=== PATIENT | female | born 1990 | race Caucasian/White ===

== ENCOUNTER 2016-12-23 17:17 | Emergency (ER) | payer OTHER ==
--- NOTE | 2016-12-23 17:51 | DIAGNOSTIC IMAGING REPORT ---
PROCEDURE: XR ANKLE 3 OR 4 VIEWS - RIGHT INDICATION: TRAUMA/INJURY TECHNIQUE: Four views. COMPARISON: None. FINDINGS: Osseous structures and joint spaces are normal. IMPRESSION: 1. Normal right ankle.
--- NOTE | 2016-12-23 18:09 | ED CLINICAL REPORT ---
Clinical Report - Physicians/Mid Levels [facility] [address] [place] [address] 12/23/2016 17:19 [id number] Time Seen: 17:32 Dec 23 2016. Arrived- By private vehicle. HISTORY OF PRESENT ILLNESS Chief Complaint: Injury to right leg. The injury happened just prior to arrival. Occurred at home. The patient sustained a direct blow and crush injury. Patient is experiencing mild pain. Patient denies injury to the head or neck. (The patient reports a box of tiles fell onto). REVIEW OF SYSTEMS The patient sustained a laceration. She complains of pain on weight bearing. All systems otherwise negative, except as recorded above. PAST HISTORY Problems: Asthma. Additional Surgeries: Parathyroidectomy. Medications: Control Pills. Albuterol Sulfate Inhalation, PRN. Allergies: Sulfa Antibiotics. PHYSICAL EXAM Vital Signs: 12/23/2016 17:23 BP: 132/87. HR: 92. RR: 18. O2 saturation: 100%. Temp: 98.1 F. Pain level now: 5/10. Head: Head atraumatic. ENT: Ears normal. Nose normal. Neck: Normal inspection. Neck supple. CVS: Normal heart rate and rhythm. Heart sounds normal. Respiratory: No respiratory distress. Breath sounds normal. No chest wall injury. Extremities: Right le.5 cm laceration located in the anterior aspect of lower leg. SEE LACERATION PROCEDURE NOTE #1. Limited weight bearing secondary to pain. Neurovascular intact distally. No puncture wound or deformity. Gait: Limping gait. Neuro: Oriented X 3. LABS, X-RAYS, AND EKG Rt Ankle X-ray: (IMPRESSION: 1. Normal right ankle. Electronically Final signed by:Deon Cavanaugh MD 12/23/2016 5:51:44 PM). The X-rays were independently viewed by me and interpreted by the radiologist. PROGRESS AND PROCEDURES Laceration Repair: Time: 18:01 Dec 23 2016. Location: right ankle. Time-out completed immediately before the procedure. Length: 1.5cm. Complexity: simple (local anesthesia used and sutured). Wound depth/shape- linear and involving fascia. Wound is clean. Distal neuro/vascular/tendon status normal. Tendon examined. No sensory deficit, motor deficit or vascular deficit distally. No tendon deficit. Local anesthesia provided using 1% lidocaine with epi. Prepped with Betadine. Wound explored and cleansed. Subcutaneous closure: interrupted 4-0 (4 sutures, non absorb). Dressing applied. Tetanus immunization given. Course of Care: patient here in the ER with right lower extremity injury from a tile box. He shouldn't with pain and a laceration from a crush injury. No signs of fracture. Unsure of last tetanus immunization. Patient. She is otherwise stable. 12/23/2016 17:23 BP: 132/87. HR: 92. RR: 18. O2 saturation: 100%. Temp: 98.1 F. Pain level now: 5/10. Patient is stable. Symptoms better. Patient/family counseled. Disposition: Discharged. CLINICAL IMPRESSION Single deep laceration to the right lower leg. Crush injury to the left ankle. INSTRUCTIONS Apply ice. Elevate affected areas above chest level. You may walk and bear weight as tolerated. Prescription Medications: Hydrocodone/APAP 5mg / 325mg: take 1 orally every 8 hours as needed for pain. Dispense ten (10). No refill. OTC Medications: Acetaminophen (available over the counter): take according to label instructions. Motrin (available over the counter): take according to label instructions. Follow-up: Follow up with your doctor in ten days for suture removal. Understanding of the discharge instructions verbalized by patient. (Electronically signed by Janet Moreira P.A.-C 12/23/2016 19:05)
--- NOTE | 2016-12-23 18:09 | ED ORDER SUMMARY ---
..... Patient: ALONZO RUDOLPH OrderSheet [facility] VisitID: [id number] [place] [address] 25y, F Registration Date/Time: 12/23/2016 ORDER SHEET Weight: 77.1 kg (stated) Allergies: Sulfa Antibiotics GENERAL ORDERS: Ankle 3 or 4V Right Urgent (17:29 12/23/2016 EKoroleva P.A.-C) (Ack 17:31 PWeiler ER Tech1) (17:48 LSullivan R.N.) Wound Irrigation (17:41 12/23/2016 EKoroleva P.A.-C) (18:11 LSullivan R.N.) MEDICATION ORDERS: Lidocaine-Epinephrine Injection 2 % (soln) (NOW, place at bedside, with syringes & needles) (17:28 12/23/2016 EKoroleva P.A.-C) (17:43 LSullivan R.N.) Tdap IM 0.5 mL (NOW, per protocol) (17:28 12/23/2016 EKoroleva P.A.-C) (17:45 LSullivan R.N.) Hydrocodone-APAP PO 5/325 mg (NOW, HIGH ALERT MEDICATION) (17:41 12/23/2016 EKoroleva P.A.-C) (17:48 LSullivan R.N.) IV FLUIDS: ORDER SHEET NOTES: [Electronically signed by Janet MoreiraAJeovany-C (19:05 12/23/2016)] [Electronically signed by Lisa Boyle R.N. (19:16 12/23/2016)] [Electronically locked/signed by Lisa Boyle R.N. (19:16 12/23/2016)]
--- NOTE | 2016-12-23 18:09 | ED NURSING NOTES ---
Clinical Report - Nurses [facility] [address] [place] [address] 12/23/2016 17:19 Patient: ALONZO RUDOLPH TRIAGE Triage time 17:26. Chief Complaint: INJURY TO RIGHT ANKLE and RIGHT FOOT. Alert. SEPSIS SCREEN: Sepsis Screen. Negative (no infection suspected/documented). --17:29 Lisa Boyle R.N. 17:23 12/23/16. BP: 132/87. HR: 92. RR: 18. O2 saturation: 100%. Temp: 98.1 F. Pain level now: 12/07. --17:29 Lisa Boyle R.N. Weight: 77.1 kg stated. Height/Length: 65 inches Per Patient. BMI: 28.3. --17:26 Lisa Boyle R.N. Medications Albuterol Sulfate Inhalation, PRN. --17:24 Lisa Boyle R.N. Control Pills. --17:24 Lisa Boyle R.N. Allergies Sulfa Antibiotics. --17:24 Lisa Boyle R.N. History Arrived by private vehicle. Historian: patient. Accompanied by mother. Primary physician (Kenny). ( Pt dropped a stack of tiles on her right ankle and foot). This occurred just prior to arrival and today. 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 PAST MEDICAL HX: Immunizations: up-to-date. Last normal menstrual period now. SOCIAL HX: Never smoker. No alcohol use or drug use. NUTRITIONAL RISK ASSESSMENT: The nutritional risk assessment revealed no deficiencies. --17:29 Lsia Boyle R.N. PROBLEMS: Asthma. --17:25 Lisa Boyle R.N. ADDITIONAL SURGERIES: Parathyroidectomy. --17:25 Lisa Boyle R.N. Interventions ID band on patient. To room. --17:29 Lisa Boyle R.N. PHYSICAL ASSESSMENT 17:30 12/23/16. GENERAL / NEURO / PSYCH: Oriented X 4. Alert. Appears in no acute distress. EXTREMITIES: Right ankle: abrasion and single puncture wound. --17:30 Lisa Boyle R.N. NURSING PROGRESS NOTES 17:30 12/23/16. Patient identifiers checked. Call light placed in reach. Bed placed in lowest position. Patient ready for evaluation- chart flagged. --17:30 Lisa Boyle R.N. 17:43 12/23/2016 Lidocaine-Epinephrine (Lidocaine-Epinephrine) Injection 2 % given. Confirmed 5 rights. --17:43 Lisa Boyle R.N. 17:45 12/23/2016 TDAP IM 0.5 mL given. (Lot#: [id number], expiration date: 12/08/2018, Division Operations Specialist: [employer]). Given in the right deltoid. Confirmed 5 rights. Vaccine information statement provided to the patient. --17:45 Lisa Boyle R.N. 17:48 12/23/2016 Hydrocodone-APAP (Hydrocodone-Acetaminophen) PO 5/325 mg Tablets 1 tab given. Confirmed 5 rights and sedative warning given. --17:48 Lisa Boyle R.N. 18:00. Wound cleansed with sterile saline. --19:15 Lisa Boyle R.N. 18:05. Applied sterile dressing consisting of 4x4 gauze, following the application of antibiotic ointment (bacitracin). Secured with tape. --19:16 Lisa Boyle R.N. DISPOSITION / DISCHARGE Departure time: 1809. Condition at departure: improved. No learning barriers present. Discharge instructions provided and reviewed with the patient and parent. Reviewed medication(s) information. Prescription(s) given to the patient. Reviewed wound care instructions. Reviewed referral to family practice for followup. Verbalized understanding. Written instructions provided. The patient was discharged home and accompanied by parent. She left the Emergency Department ambulatory and via private vehicle. --19:14 Lisa Boyle R.N. 18:09 12/23/16. BP: 136/77. HR: 97. RR: 18. O2 saturation: 97%. Pain level now: 09/09. --19:14 Boyle, Lisa, R.N. Locked/Released at 12/23/2016 19:16 by Lisa Boyle R.N.
--- NOTE | 2016-12-23 18:09 | ED ORDER SUMMARY ---
..... Patient: ALONZO RUDOLPH OrderSheet [facility] VisitID: [id number] [place] [address] 25y, F Registration Date/Time: 12/23/2016 ORDER SHEET Weight: 77.1 kg (stated) Allergies: Sulfa Antibiotics GENERAL ORDERS: Ankle 3 or 4V Right Urgent (17:29 12/23/2016 EKoroleva P.A.-C) (Ack 17:31 PWeiler ER Tech1) (17:48 LSullivan R.N.) Wound Irrigation (17:41 12/23/2016 EKoroleva P.A.-C) (18:11 LSullivan R.N.) MEDICATION ORDERS: Lidocaine-Epinephrine Injection 2 % (soln) (NOW, place at bedside, with syringes & needles) (17:28 12/23/2016 EKoroleva P.A.-C) (17:43 LSullivan R.N.) Tdap IM 0.5 mL (NOW, per protocol) (17:28 12/23/2016 EKoroleva P.A.-C) (17:45 LSullivan R.N.) Hydrocodone-APAP PO 5/325 mg (NOW, HIGH ALERT MEDICATION) (17:41 12/23/2016 EKoroleva P.A.-C) (17:48 LSullivan R.N.) IV FLUIDS: ORDER SHEET NOTES: [Electronically signed by Janet MoreiraAJeovany-C (19:05 12/23/2016)] [Electronically signed by Lisa Boyle R.N. (19:16 12/23/2016)] [Electronically locked/signed by Lisa Boyle R.N. (19:16 12/23/2016)]
--- NOTE | 2016-12-23 18:09 | ED NURSING NOTES ---
Clinical Report - Nurses [facility] [address] [place] [address] 12/23/2016 17:19 Patient: ALONZO RUDOLPH TRIAGE Triage time 17:26. Chief Complaint: INJURY TO RIGHT ANKLE and RIGHT FOOT. Alert. SEPSIS SCREEN: Sepsis Screen. Negative (no infection suspected/documented). --17:29 Lisa Boyle R.N. 17:23 12/23/16. BP: 132/87. HR: 92. RR: 18. O2 saturation: 100%. Temp: 98.1 F. Pain level now: 12/07. --17:29 Lisa Boyle R.N. Weight: 77.1 kg stated. Height/Length: 65 inches Per Patient. BMI: 28.3. --17:26 Lisa Boyle R.N. Medications Albuterol Sulfate Inhalation, PRN. --17:24 Lisa Boyle R.N. Control Pills. --17:24 Lisa Boyle R.N. Allergies Sulfa Antibiotics. --17:24 Lisa Boyle R.N. History Arrived by private vehicle. Historian: patient. Accompanied by mother. Primary physician (Kenny). ( Pt dropped a stack of tiles on her right ankle and foot). This occurred just prior to arrival and today. 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 PAST MEDICAL HX: Immunizations: up-to-date. Last normal menstrual period now. SOCIAL HX: Never smoker. No alcohol use or drug use. NUTRITIONAL RISK ASSESSMENT: The nutritional risk assessment revealed no deficiencies. --17:29 Lisa Boyle R.N. PROBLEMS: Asthma. --17:25 Lisa Boyle R.N. ADDITIONAL SURGERIES: Parathyroidectomy. --17:25 Lisa Boyle R.N. Interventions ID band on patient. To room. --17:29 Lisa Boyle R.N. PHYSICAL ASSESSMENT 17:30 12/23/16. GENERAL / NEURO / PSYCH: Oriented X 4. Alert. Appears in no acute distress. EXTREMITIES: Right ankle: abrasion and single puncture wound. --17:30 Lisa Boyle R.N. NURSING PROGRESS NOTES 17:30 12/23/16. Patient identifiers checked. Call light placed in reach. Bed placed in lowest position. Patient ready for evaluation- chart flagged. --17:30 Lisa Boyle R.N. 17:43 12/23/2016 Lidocaine-Epinephrine (Lidocaine-Epinephrine) Injection 2 % given. Confirmed 5 rights. --17:43 Lisa Boyle R.N. 17:45 12/23/2016 TDAP IM 0.5 mL given. (Lot#: [id number], expiration date: 12/08/2018, Risk Control Specialist: [employer]). Given in the right deltoid. Confirmed 5 rights. Vaccine information statement provided to the patient. --17:45 Lisa Boyle R.N. 17:48 12/23/2016 Hydrocodone-APAP (Hydrocodone-Acetaminophen) PO 5/325 mg Tablets 1 tab given. Confirmed 5 rights and sedative warning given. --17:48 Lisa Boyle R.N. 18:00. Wound cleansed with sterile saline. --19:15 Lisa Boyle R.N. 18:05. Applied sterile dressing consisting of 4x4 gauze, following the application of antibiotic ointment (bacitracin). Secured with tape. --19:16 Lisa Boyle R.N. DISPOSITION / DISCHARGE Departure time: 1809. Condition at departure: improved. No learning barriers present. Discharge instructions provided and reviewed with the patient and parent. Reviewed medication(s) information. Prescription(s) given to the patient. Reviewed wound care instructions. Reviewed referral to family practice for followup. Verbalized understanding. Written instructions provided. The patient was discharged home and accompanied by parent. She left the Emergency Department ambulatory and via private vehicle. --19:14 Lisa Boyle R.N. 18:09 12/23/16. BP: 136/77. HR: 97. RR: 18. O2 saturation: 97%. Pain level now: 09/09. --19:14 Boyel, Lisa, R.N. Locked/Released at 12/23/2016 19:16 by Lisa Boyle R.N.
--- NOTE | 2016-12-23 19:16 | ED MED RECONCILIATION SUMMARY ---
Patient: ALONZO RUDOLPH Medication Reconciliation Report [facility] VisitID: [id number] [address] [place] [address] 25y, F Registration Date/Time: 12/23/2016 Weight: 77.1 kg Height/Length: 65 in. BMI: 28.3 ALLERGIES: Sulfa Antibiotics The patient's Home Medications are listed below: THE FOLLOWING MEDICATIONS NEED TO BE RECONCILED: Albuterol Sulfate Inhalation, PRN Control Pills The source(s) of the original Home Medication information: Not obtained. The following Medications were given to the patient in the Emergency Department: Lidocaine-Epinephrine [Injection] Injection 2 %, administered: 12/23/2016 5:43:00 PM TDAP [IM] IM 0.5 mL, administered: 12/23/2016 5:45:00 PM Hydrocodone-APAP [PO] PO 1 tab, administered: 12/23/2016 5:48:00 PM The following Medications were prescribed to the patient: Acetaminophen (available over the counter): take according to label instructions. -- Janet Moreira, P.A.-C Motrin (available over the counter): take according to label instructions. -- Janet Moreira, P.A.-C Hydrocodone/APAP 5mg / 325mg: take 1 orally every 8 hours as needed for pain. Dispense ten (10). No refill. -- Janet Moreira, P.A.-C
--- NOTE | 2016-12-23 19:16 | ED MAR SUMMARY ---
..... Medication Administration Record [facility] [address] [place] [address] Patient: ALONZO RUDOLPH Visit ID: [id number] 25y, F Weight: 77.1 kg Height/Length: 65 in BMI: 28.3 ALLERGIES: Sulfa Antibiotics Given 17:43 12/23/2016 Lisa Boyle RAliza Medication Administered: LIDOCAINE-EPINEPHRINE [INJECTION] (LIDOCAINE-EPINEPHRINE), Dose: 2 % Injection. Medication Ordered: Lidocaine-Epinephrine Injection 2 % (soln) (NOW, place at bedside, with syringes & needles). Given 17:45 12/23/2016 Lisa Boyle RJeovanyNJeovany Medication Administered: TDAP [IM], Dose: 0.5 mL IM. Medication Ordered: Tdap IM 0.5 mL (NOW, per protocol). Given 17:48 12/23/2016 Lisa Boyle, RJeovanyNJeovany Medication Administered: HYDROCODONE-APAP [PO] (HYDROCODONE-ACETAMINOPHEN), Dose: 1 tab 5/325 mg Tablets PO. Medication Ordered: Hydrocodone-APAP PO 5/325 mg (NOW, HIGH ALERT MEDICATION).
--- NOTE | 2016-12-23 19:16 | ED MAR SUMMARY ---
..... Medication Administration Record [facility] [address] [place] [address] Patient: ALONZO RUDOLPH Visit ID: [id number] 25y, F Weight: 77.1 kg Height/Length: 65 in BMI: 28.3 ALLERGIES: Sulfa Antibiotics Given 17:43 12/23/2016 Lisa Boyle RAliza Medication Administered: LIDOCAINE-EPINEPHRINE [INJECTION] (LIDOCAINE-EPINEPHRINE), Dose: 2 % Injection. Medication Ordered: Lidocaine-Epinephrine Injection 2 % (soln) (NOW, place at bedside, with syringes & needles). Given 17:45 12/23/2016 Lisa Boyle RJeovanyNJeovany Medication Administered: TDAP [IM], Dose: 0.5 mL IM. Medication Ordered: Tdap IM 0.5 mL (NOW, per protocol). Given 17:48 12/23/2016 Lisa Boyle, RJeovnayNJeovany Medication Administered: HYDROCODONE-APAP [PO] (HYDROCODONE-ACETAMINOPHEN), Dose: 1 tab 5/325 mg Tablets PO. Medication Ordered: Hydrocodone-APAP PO 5/325 mg (NOW, HIGH ALERT MEDICATION).
--- NOTE | 2016-12-23 19:16 | ED DISCHARGE INSTRUCTIONS ---
Patient: ALONZO RUDOLPH General Instructions [facility] VisitID: [id number] [place] [address] 25y, F Registration Date/Time: 12/23/2016 Single deep laceration to the right lower leg. Crush injury to the left ankle. INSTRUCTIONS Apply ice. Elevate affected areas above chest level. You may walk and bear weight as tolerated. Prescription Medications: Hydrocodone/APAP 5mg / 325mg: take 1 orally every 8 hours as needed for pain. Dispense ten (10). No refill. OTC Medications: Acetaminophen (available over the counter): take according to label instructions. Motrin (available over the counter): take according to label instructions. Follow-up: Follow up with your doctor in ten days for suture removal. Understanding of the discharge instructions verbalized by patient. ADDITIONAL INFORMATION Laceration, Extremity (Sutures, Nicole, Or Tape) A laceration is a cut through the skin. This will usually require stitches (sutures) or nicole if it is deep. Minor cuts may be treated with surgical tape closures. Home care The following guidelines will help you care for your laceration at home: Keep the wound clean and dry. If a bandage was applied and it becomes wet or dirty, replace it. Otherwise, leave it in place for the first 24 hours, then change it once a day or as directed. If stitches or nicole were used, clean the wound daily: After removing the bandage, wash the area with soap and water. Use a wet cotton swab to loosen and remove any blood or crust that forms. After cleaning, keep the wound clean and dry. Talk with your doctor before applying any antibiotic ointment to the wound. Reapply the bandage. You may remove the bandage to shower as usual after the first 24 hours, but do not soak the area in water (no swimming) until the stitches or nicole are removed. If surgical tape closures were used, keep the area clean and dry. If it becomes wet, blot it dry with a towel. The doctor may prescribe an antibiotic cream or ointment to prevent infection. Do not stop taking this medication until you have finished the prescribed course or the doctor tells you to stop. The doctor may also prescribe medications for pain. Follow the doctors instructions for taking these medications. If you have chronic liver or kidney disease or ever had a stomach ulcer or GI bleeding, talk with your doctor before using these medicines. Follow-up care Follow up with your health care provider. Most skin wounds heal within ten days. However, an infection may sometimes occur despite proper treatment. Therefore, check the wound daily for the signs of infection listed below. Stitches and nicole should be removed within 714 days. If surgical tape closures were used, you may remove them after 10 days, if they have not fallen off by then. Notify your doctor if you notice persistent numbness or weakness in the injured extremity. (Note:A radiologist will review any X-rays that were taken. We will notify you of any new findings that may affect your care.) When to seek medical care Get prompt medical attention if any of these occur: Increasing pain in the wound Redness, swelling, or pus coming from the wound Fever of 100.4F (38C) or higher, or as directed by your health care provider If stitches or nicole come apart or fall out before your next appointment If the surgical tape closures fall off within seven days, or the wound edges re-open Bleeding not controlled by direct pressure Crush Injury, Foot (No Fx) A crush injury to your foot causes local pain, swelling, and sometimes bruising. There are no broken bones. This injury takes from a few days to a few weeks to heal. If the toenail has been severely injured, it may fall off in 12 weeks. A new one will usually start to grow back within a month. Home care The following guidelines will help you care for your wound at home: You may be given a splint, cast, shoe, or boot to prevent movement at the injury. Unless you were told otherwise, use crutches or a walker anddo notbear weight on the injured foot until cleared by your doctor to do so. (Crutches and walkers can be rented at many pharmacies and surgical/orthopedic supply stores). Do not put weight on a splint; it will break. Keep your leg elevated to reduce pain and swelling. When sleeping, place a pillow under the injured leg. When sitting, support the injured leg so it is level with your waist. This is very important during the first 48 hours. Apply an ice pack (ice cubes in a plastic bag, wrapped in a towel) over the injured area for 20 minutes every 12 hours the first day for pain relief. Continue this 34 times a day until the pain and swelling goes away. You may use acetaminophen or ibuprofen to control pain, unless another pain medicine was prescribed.If you have chronic liver or kidney disease or ever had a stomach ulcer or GI bleeding, talk with your doctor before using these medicines. Keep the splint/cast/boot/shoe dry. When bathing, protect it with a large plastic bag, rubber-banded at the top end. If a fiberglass splint/cast or boot gets wet, you can dry it with a hair-dryer. Unless told otherwise, you can remove a boot or shoe to bathe. If your injury includes exposed cuts or scrapes, clean these daily with soap and water. Apply antibiotic ointment. Watch for the signs of infection listed below. Follow-up care Follow up with your doctor as advised. Return sooner if you are not starting to improve within the nextthreedays. If you were given a splint, it may be changed to a cast or boot at your follow-up visit. Note:X-rays will be reviewed by a radiologist. You will be notified of any new findings that may affect your care. When to seek medical care Get prompt medical attention if any of the following occur: The plaster cast or splint becomes wet or soft The fiberglass cast or splint remains wet for more than 24 hours Increased tightness or pain under the cast or splint Toes become swollen, cold, blue, numb, or tingly Redness, warmth, swelling, drainage from the wound, or foul odor from a cast or splint Fever of 100.4F(38C) or higher, or as directed by your health care provider Hydrocodone Bitartrate, Acetaminophen Oral tablet What is this medicine? ACETAMINOPHEN; HYDROCODONE (a set a KARLENE tito fen; didi droe KOE done) is a pain reliever. It is used to treat mild to moderate pain. How should I use this medicine? Take this medicine by mouth. Swallow it with a full glass of water. Follow the directions on the prescription label. If the medicine upsets your stomach, take the medicine with food or milk. Do not take more than you are told to take. Talk to your environmental studies department chair regarding the use of this medicine in children. This medicine is not approved for use in children. What side effects may I notice from receiving this medicine? Side effects that you should report to your doctor or health medicare interviewer as soon as possible: allergic reactions like skin rash, itching or hives, swelling of the face, lips, or tongue breathing problems confusion feeling faint or lightheaded, falls stomach pain yellowing of the eyes or skin Side effects that usually do not require medical attention (report to your doctor or health medicare interviewer if they continue or are bothersome): nausea, vomiting stomach upset What may interact with this medicine? alcohol antihistamines isoniazid medicines for depression, anxiety, or psychotic disturbances medicines for sleep muscle relaxants naltrexone narcotic medicines (opiates) for pain phenobarbital ritonavir tramadol What if I miss a dose? If you miss a dose, take it as soon as you can. If it is almost time for your next dose, take only that dose. Do not take double or extra doses. Where should I keep my medicine? Keep out of the reach of children. This medicine can be abused. Keep your medicine in a safe place to protect it from theft. Do not share this medicine with anyone. Selling or giving away this medicine is dangerous and against the law. Store at room temperature between 15 and 30 degrees C (59 and 86 degrees F). Protect from light. Keep container tightly closed. Throw away any unused medicine after the expiration date. Discard unused medicine and used packaging carefully. Pets and children can be harmed if they find used or lost packages. What should I tell my health care provider before I take this medicine? They need to know if you have any of these conditions: brain tumor Crohn's disease, inflammatory bowel disease, or ulcerative colitis drink more than 3 alcohol-containing drinks per day drug abuse or addiction head injury heart or circulation problems kidney disease or problems going to the bathroom liver disease lung disease, asthma, or breathing problems an unusual or allergic reaction to acetaminophen, hydrocodone, other opioid analgesics, other medicines, foods, dyes, or preservatives or trying to get breast-feeding What should I watch for while using this medicine? Tell your doctor or health medicare interviewer if your pain does not go away, if it gets worse, or if you have new or a different type of pain. You may develop tolerance to the medicine. Tolerance means that you will need a higher dose of the medicine for pain relief. Tolerance is normal and is expected if you take the medicine for a long time. Do not suddenly stop taking your medicine because you may develop a severe reaction. Your body becomes used to the medicine. This does NOT mean you are addicted. Addiction is a behavior related to getting and using a drug for a non-medical reason. If you have pain, you have a medical reason to take pain medicine. Your doctor will tell you how much medicine to take. If your doctor wants you to stop the medicine, the dose will be slowly lowered over time to avoid any side effects. You may get drowsy or dizzy when you first start taking the medicine or change doses. Do not drive, use machinery, or do anything that may be dangerous until you know how the medicine affects you. Stand or sit up slowly. There are different types of narcotic medicines (opiates) for pain. If you take more than one type at the same time, you may have more side effects. Give your health care provider a list of all medicines you use. Your doctor will tell you how much medicine to take. Do not take more medicine than directed. Call emergency for help if you have problems breathing. The medicine will cause constipation. Try to have a bowel movement at least every 2 to 3 days. If you do not have a bowel movement for 3 days, call your doctor or health medicare interviewer. Too much acetaminophen can be very dangerous. Do not take Tylenol (acetaminophen) or medicines that contain acetaminophen with this medicine. Many non-prescription medicines contain acetaminophen. Always read the labels carefully. You have been given the following additional information: Laceration, Extrem (Suture, Staple, Or Tape) Crush Injury, Foot/Toe Hydrocodone Bitartrate, Acetaminophen Oral tablet You may walk and bear weight as tolerated. (Electronically signed by Janet Moreira P.A.-C 12/23/2016 19:05)
--- NOTE | 2016-12-23 19:16 | ED MED RECONCILIATION SUMMARY ---
Patient: ALONZO RUDOLPH Medication Reconciliation Report [facility] VisitID: [id number] [place] [address] 25y, F Registration Date/Time: 12/23/2016 Weight: 77.1 kg Height/Length: 65 in. BMI: 28.3 ALLERGIES: Sulfa Antibiotics The patient's Home Medications are listed below: THE FOLLOWING MEDICATIONS NEED TO BE RECONCILED: Albuterol Sulfate Inhalation, PRN Control Pills The source(s) of the original Home Medication information: Not obtained. The following Medications were given to the patient in the Emergency Department: Lidocaine-Epinephrine [Injection] Injection 2 %, administered: 12/23/2016 5:43:00 PM TDAP [IM] IM 0.5 mL, administered: 12/23/2016 5:45:00 PM Hydrocodone-APAP [PO] PO 1 tab, administered: 12/23/2016 5:48:00 PM The following Medications were prescribed to the patient: Acetaminophen (available over the counter): take according to label instructions. -- Janet Moreira, P.A.-C Motrin (available over the counter): take according to label instructions. -- Janet Moreira, P.A.-C Hydrocodone/APAP 5mg / 325mg: take 1 orally every 8 hours as needed for pain. Dispense ten (10). No refill. -- Janet Moreira, P.A.-C
== END 2016-12-23 18:09 | disposition home or self-care (01) ==
LOC: ED SRH 17:17
DX: S81.811A Laceration without foreign body, right lower leg, initial encounter (principal); S97.01XA Crushing injury of right ankle, initial encounter; W20.8XXA Other cause of strike by thrown, projected or falling object, initial encounter; Y93.9 Activity, unspecified; Y92.019 Unspecified place in single-family (private) house as the place of occurrence of the external cause; Y99.9 Unspecified external cause status; Z23 Encounter for immunization; J45.909 Unspecified asthma, uncomplicated; Z79.899 Other long term (current) drug therapy; Z88.1 Allergy status to other antibiotic agents